=== PATIENT | male | born 1965 | race Caucasian/White ===

== ENCOUNTER 2018-12-21 10:10 | Emergency (ER) | payer OTHER ==
[2018-12-21] MEDS ORDERED: IPRATROPIUM/ALBUTEROL SULFATE 3 ML AMPUL.NEB NEB ONE (10:21)
[2018-12-21] MEDS ORDERED: 0.9 % SODIUM CHLORIDE 1,000 ML IV ONE (10:22)
--- NOTE | 2018-12-21 10:32 | ED Physician Documentation ---
General Adult - HISTORIAN Historian: patient - HPI Stated Complaint: N/V/D and cough Chief Complaint: General Adult Onset: days ago (4) Timing: still present Severity: mild Further Comments: yes (He reports having nausea vomiting diarrhea and nasal congestion with cough x 4 days. He has no OTC meds today. He has a history of seizures. He has HTN. denies any fever. No rash. His cough is productive. He is a smoker. He has chest pain with cough. Denies any heart issues.) - ROS CONST: weakness. denies: fever, recent illness EYES/ENT: sore throat, nasal drainage, nasal congestion CVS/RESP: cough. denies: chest pain, shortness of breath GI/: none MS/SKIN/LYMPH: denies: rash NEURO/PSYCH: headache. denies: fainting, dizziness, tingling - PAST HX Past History: hypertension Immunizations: UTD Allergies/Adverse Reactions: Allergies Allergy/AdvReac Type Severity Reaction Status Date / Time codeine Allergy Verified 12/21/18 10:34 Home Medications: Ambulatory Orders Medication Instructions Recorded Diclofenac Sodium [Voltaren] 1 tab PO BID 12/21/18 Duloxetine HCl [Cymbalta] 1 tab PO BID 12/21/18 Fluticasone Propionate [Flovent 50 1 spray INH BID 12/21/18 Mcg Diskus] Hydrochlorothiazide 1 tab PO DAILY 12/21/18 Hydroxychloroquine Sulfate 2 tab PO BID 12/21/18 [Plaquenil] Leflunomide 1 tab PO DAILY 12/21/18 Levetiracetam [Levetiracetam ER] 1 tab PO BID 12/21/18 Morphine Sulfate [Morphine Sulfate 1 cap PO DAILY 12/21/18 ER] Ondansetron [Zuplenz] 1 tab PO TID 12/21/18 Pregabalin [Lyrica] 1 cap PO BID 12/21/18 - SOCIAL HX Smoking History: cigarettes Alcohol Use: none Drug Use: none - FAMILY HX Family History: No - REVIEWED ASSESSMENTS Nursing Assessment Reviewed: Yes Vitals Reviewed: Yes Progress - Progress Progress: 1205: results explained and plan discussed - he is agreeable DG ED Results Lab/Radiology - Radiology Radiology Impressions: Examination: Portable chest History: Evaluate lungs. COUGH, FEVER, LETHARGY X 5 DAYS Comparison exam: None available for direct review. Findings: Single view of the chest demonstrates a normal cardiac and mediastinal silhouette. Lung kimball without focal infiltrate. No blunting of the costophrenic margins. Osseous structures are appropriate for age. Impression: No acute pulmonary process. Electronically signed on Dec 21, 2018 10:52:32 AM GROCERY BUYER by: Oz Dumas - Orders Orders: ED Orders Category Date Time Status Assess pulse oximetry Q1H Care 12/21/18 10:21 Ordered IV Started NOW Care 12/21/18 10:22 Ordered CHEST 1VIEW [RAD] Stat Exams 12/21/18 Ordered BNP [NT-proBNP] Stat Lab 12/21/18 Ordered CBC/PLATELET/DIFF Routine Lab 12/21/18 Ordered CMP Routine Lab 12/21/18 Ordered INFLUENZA A&B Stat Lab 12/21/18 Uncollected 0.9 % Sodium Chloride [Normal Saline] 1,000 ml Med 12/21/18 10:22 Ordered IV NOW Ipratropium/Albuterol Sulfate [Duoneb] Med 12/21/18 10:21 Once 3 ml NEB .STK-MED ONE Oxygen Daily Oxygen 12/21/18 10:30 Ordered EKG WITH COMPARISON Stat Ther 12/21/18 Ordered General Adult Physical Exam - PHYSICAL EXAM GENERAL APPEARANCE: no distress EENT: eye inspection normal NECK: normal inspection RESPIRATORY: no resp distress, wheezes, rhonchi CVS: reg rate & rhythm, heart sounds normal ABDOMEN: soft, normal bowel sounds, no distension BACK: normal inspection SKIN: warm/dry EXTREMITIES: non-tender, normal range of motion, no evidence of injury, no edema NEURO: oriented X3 Discharge Clincal Impression: Bronchitis Referrals: Primary Doctor,No [Primary Care Provider] - 2 Days Comments: 1. Augmentin 875/125 mg take 1 by mouth twice daily x 10 days 2. Medrol dose pack start 12.22.2018 3. Proair take 2 puffs every 4 hours as needed for cough 4. Potassium 8 mEq daily x 5 days 5. Follow up with PCP in 2-4 days for potassium lab follow up 6. Return to ER for any concerns Condition: Stable Disposition: 01 HOME, SELF-CARE Decision to Admit: NO Date of Decison to Admit: 12/21/18 Decision Time: 12:09
[2018-12-21 10:56] LABS: MEAN CORPUSCULAR HEMOGLOBIN 30.3 pg (28.0-34.0)
[2018-12-21 10:57] LABS: BASOPHILS % 1.5 (0.0-1.5); EOSINOPHILS % 0.9 % (0.0-6.8); MONOCYTES % 8.7 % (0.0-11.0); NEUTROPHILS # 11.3 # k/uL (1.4-7.7)
[2018-12-21 11:25] LABS: eGFR (Non-African) > 60
--- NOTE | 2018-12-21 11:29 | Diagnostic Imaging Report ---
STEPHEN KHALIL [facility] [address] [facility] [address] [place], [place]. [address] Report Submission Date: Dec 21, 2018 10:52:32 AM SLURRY TANK TENDER Patient Study Name: DANIEL ELAINE Date: Dec 21, 2018 10:28:51 AM SLURRY TANK TENDER Modality Type: DX Gender: M Description: CHEST 1VIEW : 63 Institution: [facility] Physician: STEPHEN KHALIL Examination: Portable chest History: Evaluate lungs. COUGH, FEVER, LETHARGY X 5 DAYS Comparison exam: None available for direct review. Findings: Single view of the chest demonstrates a normal cardiac and mediastinal silhouette. Lung kimball without focal infiltrate. No blunting of the costophrenic margins. Osseous structures are appropriate for age. Impression: No acute pulmonary process. Electronically signed on Dec 21, 2018 10:52:32 AM SLURRY TANK TENDER by: Oz SCHAEFFER
[2018-12-21] MEDS ORDERED: methylPREDNISolone SOD SUCC 125 MG/2 ML VIAL IVP ONE (11:53)
[2018-12-21] MEDS ORDERED: POTASSIUM CHLORIDE 20 MEQ TABLET.ER PO ONE (11:54)
[2018-12-21 12:38] VITALS: BP 136/80
== END 2018-12-21 12:24 | disposition home or self-care (01) ==
LOC: ED 10:10
DX: J40 Bronchitis, not specified as acute or chronic (principal); Z72.0 Tobacco use
CPT/HCPCS: 36415; 71045; 80053; 83880; 84484; 85025; 87040; 87400; 93005; 94640; 94760; 96374; 99283; 99284; A9270; J2930; J7030

== ENCOUNTER 2019-08-02 11:06 | Emergency (ER) | payer OTHER ==
--- NOTE | 2019-08-02 11:59 | ED Physician Documentation ---
Male Genitourinary Problems - HISTORIAN Historian: patient, spouse - HPI Stated Complaint: rt groin pain Chief Complaint: Abdominal Pain Additional Information: Patient is a 53 year old male who presents to the ER with . Patient c/o right groin pain that is radiating to the right scrotum. Pain initially started in his back radiating to the right flank but pain has been localized to the right groin. He denies any fever, chills, nausea or vomiting. Onset: days ago Duration: continues in ED Context: denies: drug use, lifting Severity: moderate - Associated Symptoms Problems Urinating: none Testicular Pain: R testicle Testicular Swelling: none Penile Pain: No Penile Swelling: No Inguinal Mass: No Flank Pain: right sided Abdominal Pain: mild, diffuse - Sexual History Sexual History: non-contributory - ROS CONST: none GI/: denies: nausea, vomiting MS/SKIN/LYMPH: none CVS/RESP: none EYES/ENT: none NEURO/PSYCH: denies: anxiety, depression - PAST HX Past History: hypertension, other (GERD, Chronic Pain) Immunizations: UTD Allergies/Adverse Reactions: Allergies Allergy/AdvReac Type Severity Reaction Status Date / Time codeine Allergy Intermediate Itchy Skin Verified 08/02/19 11:28 Home Medications: Ambulatory Orders Medication Instructions Recorded Leflunomide 1 tab PO DAILY 12/21/18 Pregabalin [Lyrica] 1 cap PO BID 12/21/18 Fluticasone Propionate [Flonase] 1 spray .ROUTE DIRECTED 08/02/19 Omeprazole 20 mg PO DAILY 08/02/19 Telmisartan/Hydrochlorothiazid 1 tab PO DAILY 08/02/19 [Telmisartan-Hctz 80-25 mg Tab] predniSONE [Estiven] 5 mg PO DAILY 08/02/19 - SOCIAL HX Smoking History: greater than 1 pack/day Alcohol Use: none Drug Use: none - FAMILY HX Family History: none - VITAL SIGNS Vital Signs: Vital Signs Temp Pulse Resp BP Pulse Ox 97.9 F 98 H 16 144/100 97 08/02/19 11:06 08/02/19 11:06 08/02/19 11:06 08/02/19 11:06 08/02/19 11:06 - REVIEWED ASSESSMENTS Nursing Assessment Reviewed: Yes Vitals Reviewed: Yes ED Results Lab/Radiology - Lab Results Lab Results: Lab Results 08/02/19 08/02/19 13:40 13:40 WBC 9.90 K/ul K/ul (4.00-12.00) RBC 5.36 M/ul H M/ul (3.90-5.20) Hgb 17.0 g/dL g/dL (12.0-18.0) Hct 50.7 % % (37.0-53.0) MCV 95.0 fl fl (80.0-100.0) MCH 31.7 pg pg (28.0-34.0) MCHC 33.4 g/dL g/dL (30.0-36.0) RDW 11.7 % % (11.3-14.3) Plt Count 323 K/mm3 K/mm3 (130-400) Neut % (Auto) 67.8 % % (39.0-79.0) Lymph % (Auto) 21.5 % % (16.0-50.0) [place] % (Auto) 8.5 % % (0.0-11.0) Eos % (Auto) 1.3 % % (0.0-6.8) Baso % (Auto) 0.9 % % (0.0-1.5) Neut # (Auto) 6.7 # k/uL # k/uL (1.4-7.7) Lymph # (Auto) 2.1 # k/uL # k/uL (0.6-4.0) [place] # (Auto) 0.8 # k/uL # k/uL (0.0-0.9) Eos # (Auto) 0.1 # k/uL # k/uL (0.0-0.6) Baso # (Auto) 0.1 # k/uL # k/uL (0.0-0.5) Sodium 141 mmol/L mmol/L (137-145) Potassium 3.5 mmol/L mmol/L (3.5-5.1) Chloride 103 mmol/L mmol/L (98-107) Carbon Dioxide 21 mmol/L L mmol/L (22-30) Anion Gap 20.5 BUN 21 mg/dL H mg/dL (9-20) Creatinine 0.84 mg/dL mg/dL (0.66-1.25) Estimated Creat Clear 116 Est GFR ( Amer) > 60 (60 - ) Est GFR (Non-Af Amer) > 60 (60 - ) Glucose 98 mg/dL mg/dL (74-106) Calcium 9.7 mg/dL mg/dL (8.4-10.2) Total Bilirubin 0.9 mg/dL mg/dL (0.2-1.3) AST 45 U/L U/L (15-46) ALT 25 U/L U/L (13-69) Alkaline Phosphatase 95 U/L U/L (38-126) Total Protein 8.5 g/dL H g/dL (6.3-8.2) Albumin 4.8 g/dL g/dL (3.5-5.0) - Radiology Radiology Impressions: Exam: Limited abdominal ultrasound. History: Right lower quadrant pain. Real-time grayscale imaging of the right side of the abdomen is performed. Fluid-filled structures associated with the right kidney are identified. The differential could include hydronephrosis. There is an complex area of diminished echotexture identified in the right lower quadrant measuring 1.2 x 0.9 cm which could represent a prominent appendix. Impression: Multiple right renal cysts versus hydronephrosis. Possible prominent appendix. CT may be necessary to further evaluate. Electronically signed on Aug 02, 2019 1:17:15 PM CDT by: Allen Navarro Will get CT Name: DANIEL ELAINE : 63 Acc #: [id number] DOS: Aug 02, 2019 2:50:33 PM CDT Mod: CT\SR Desc: CT ABD PELVIS W/ CON [address] abdomen and pelvis with contrast Date of study: CLINICAL HISTORY: BACK PAIN X 3 DAYS; RLQ PAIN X 1 DAY; HX OF RENAL CYSTS ULTRASOUND DONE EARLIER TODAY; RAD SUGGESTED CT (Hx) / ITS.REASON recommended by Radiology; hydronephrosis Note time : 08/02/2019 3:07:38 PM User : Gloria Vick BACK PAIN X 3 DAYS; RLQ PAIN X 1 DAY; HX OF RENAL CYSTS (DICOM Hx) (DICOM Hx) TECHNIQUE: 5 mm contiguous axial images of the abdomen and pelvis with IV contrast. With; 90mL [id number] FINDINGS: Abdomen: The liver, pancreas and spleen are normal in appearance. The gallbladder is unremarkable. The kidneys enhance appropriately and symmetrically. The aorta is normal in caliber. The small bowel is nondistended. There is no evidence of free air. Large right renal cysts are seen measuring up to 7 cm in the lower pole. The appendix is normal. No hydronephrosis. Pelvis: The colon is normal in appearance. The distal ureters and bladder are normal. There is no evidence of free fluid. The sigmoid colon and rectum are normal. The remaining pelvic structures are within normal limits and the bones of the pelvis are intact. There are changes of posterior L4 to S1 spinal fusion. Within the right aspect of the canal at L3/L4 there is what appears to be a small locules gas and possible contrast or calcification over there are approximately 7 mm in the right posterior aspect of the canal. IMPRESSION: No acute abdominal process. Simple right renal cyst. No hydronephrosis. Normal appendix. Appearance of a small lack of gas and possible contrast in the right L3/L4 epidural/nerve root region. Has the patient had a recent nerve root injection? Please correlate with history and recommend MRI lumbar spine for further evaluation as needed. Electronically signed on Aug 02, 2019 3:19:13 PM CDT by: Artem Gavin - Orders Orders: ED Orders Category Date Time Status CT ABD & PELVIS W/ CON Stat Exams 08/02/19 Taken US ABDOMEN LIMITED [US] Stat Exams 08/02/19 Taken CBC/PLATELET/DIFF Routine Lab 08/02/19 13:40 Completed CMP Routine Lab 08/02/19 13:40 Completed URINALYSIS Routine Lab 08/02/19 11:41 Ordered 0.9 % Sodium Chloride [Normal Saline] 500 ml Med 08/02/19 13:30 Discontinued IV NOW Ketorolac Tromethamine [Toradol] Med 08/02/19 13:30 Discontinued 30 mg IV NOW ONE Male Genitourinary Problems - EXAM General Appearance: alert, mild distress Abdomen: non-tender Genitals: nml inspection, testicles nml palp.. No: hernia mass EENT: eye inspection normal, ENT inspection normal, pharynx normal, no signs of dehydration, BORIS Neck: nml inspection Respiratory: chest non-tender, breath sounds normal CVS: heart sounds normal, equal pulses Back: non-tender Extremities: normal range of motion, non-tender, normal inspection Neuro/Psych: oriented X3, CN's nml as tested, motor nml, sensation nml, mood/affect nml, cognition normal Skin: warm/dry, normal color Discharge Clincal Impression: Abdominal pain in male Referrals: Juan Chaves MD [Primary Care Provider] - 2 Days Additional Instructions: May use Gas-X; Miralax daily Increase walking Increase water intake May use heating pad Follow up with PCP in one week for re-evaluation Condition: Good Disposition: 01 HOME, SELF-CARE Decision to Admit: NO Decision Time: 15:30
[2019-08-02] MEDS: KETOROLAC TROMETHAMINE 30 MG/1ML VIAL IV ONE (13:48)
[2019-08-02] MEDS: 0.9 % SODIUM CHLORIDE 500 ML IV ONE (13:48)
[2019-08-02 14:26] LABS: BASOPHILS % 0.9 % (0.0-1.5); NEUTROPHILS # 6.7 # k/uL (1.4-7.7)
[2019-08-02 14:34] LABS: eGFR (Non-African) > 60
--- NOTE | 2019-08-02 15:39 | Diagnostic Imaging Report ---
FRANCISCO JAVIER DURAN ED [facility] [address] [facility] [address] [address] Report Submission Date: Aug 02, 2019 1:17:15 PM CDT Patient Study Name: DANIEL ELAINE Date: Aug 02, 2019 11:37:23 AM CDT Modality Type: US Gender: M Description: US ABDOMEN LIMITED : 63 Institution: [facility] Physician: FRANCISCO JAVIER DURAN ED Exam: Limited abdominal ultrasound. History: Right lower quadrant pain. Real-time grayscale imaging of the right side of the abdomen is performed. Fluid-filled structures associated with the right kidney are identified. The differential could include hydronephrosis. There is an complex area of diminished echotexture identified in the right lower quadrant measuring 1.2 x 0.9 cm which could represent a prominent appendix. Impression: Multiple right renal cysts versus hydronephrosis. Possible prominent appendix. CT may be necessary to further evaluate. Electronically signed on Aug 02, 2019 1:17:15 PM CDT by: Allen SCHAEFFER
--- NOTE | 2019-08-02 15:44 | Diagnostic Imaging Report ---
FRANCISCO JAVIER DURAN ED [facility] [address] [address] Report Submission Date: Aug 02, 2019 3:19:13 PM CDT Patient Study Name: DANIEL ELAINE Date: Aug 02, 2019 2:50:33 PM CDT Modality Type: CT\SR Gender: M Description: CT ABD PELVIS W/ CON : 63 Institution: [facility] Physician: FRANCISCO JAVIER DURAN ED CT abdomen and pelvis with contrast Date of study: CLINICAL HISTORY: BACK PAIN X 3 DAYS; RLQ PAIN X 1 DAY; HX OF RENAL CYSTS ULTRASOUND DONE EARLIER TODAY; RAD SUGGESTED CT (Hx) / ITS.REASON recommended by Radiology; hydronephrosis Note time : 08/02/2019 3:07:38 PM User : Gloria Vick BACK PAIN X 3 DAYS; RLQ PAIN X 1 DAY; HX OF RENAL CYSTS (DICOM Hx) (DICOM Hx) TECHNIQUE: 5 mm contiguous axial images of the abdomen and pelvis with IV contrast. With; 90mL [id number] FINDINGS: Abdomen: The liver, pancreas and spleen are normal in appearance. The gallbladder is unremarkable. The kidneys enhance appropriately and symmetrically. The aorta is normal in caliber. The small bowel is nondistended. There is no evidence of free air. Large right renal cysts are seen measuring up to 7 cm in the lower pole. The appendix is normal. No hydronephrosis. Pelvis: The colon is normal in appearance. The distal ureters and bladder are normal. There is no evidence of free fluid. The sigmoid colon and rectum are normal. The remaining pelvic structures are within normal limits and the bones of the pelvis are intact. There are changes of posterior L4 to S1 spinal fusion. Within the right aspect of the canal at L3/L4 there is what appears to be a small locules gas and possible contrast or calcification over there are approximately 7 mm in the right posterior aspect of the canal. IMPRESSION: No acute abdominal process. Simple right renal cyst. No hydronephrosis. Normal appendix. Appearance of a small lack of gas and possible contrast in the right L3/L4 epidural/nerve root region. Has the patient had a recent nerve root injection? Please correlate with history and recommend MRI lumbar spine for further evaluation as needed. Electronically signed on Aug 02, 2019 3:19:13 PM CDT by: Artem SCHAEFFER
[2019-08-02 15:50] VITALS: BP 111/63
== END 2019-08-02 15:34 | disposition home or self-care (01) ==
LOC: ED 11:06
DX: R10.31 Right lower quadrant pain (principal)
CPT/HCPCS: 74177; 76705; 80053; 85025; 96361; 96374; 99284; J1885; J7060; Q9967; S1016